=== PATIENT | male | born 1980 | race Caucasian/White ===

== ENCOUNTER 2016-05-15 23:59 | Emergency (ER) | payer OTHER ==
[~2016-05-15 23:59] MED LIST: AUGMENTIN PO; COATED ASPIRIN325 M1 PO; PREDNISONE10 MG/DOSE PO
== END 2016-05-16 00:45 | disposition home or self-care (01) ==
LOC: CFTX 23:59
DX: G89.29 Other chronic pain (principal); M54.5 Low back pain; M79.605 Pain in left leg; Z88.0 Allergy status to penicillin
CPT/HCPCS: 96372; 99283; J1885; J2360